=== PATIENT | male | born 1965 | race African-American/Black ===

== ENCOUNTER 2018-12-17 12:33 | Emergency (ER) | payer SELFPAY ==
[~2018-12-17] VITALS: Ht 180.3 cm; Wt 93.2 kg
[2018-12-17] MEDS ORDERED: PredniSONE 20 MG TABLET PO ONE (13:15)
[2018-12-17 13:56] VITALS: BP 162/116
== END 2018-12-17 14:24 | disposition home or self-care (01) ==
LOC: EMS 12:34
DX: H02.89 Other specified disorders of eyelid (principal)
CPT/HCPCS: 99283; J7512

== ENCOUNTER 2019-01-24 06:56 | Emergency (ER) | payer SELFPAY ==
[~2019-01-24] VITALS: Ht 182.9 cm; Wt 95.5 kg
[2019-01-24 08:32] VITALS: BP 160/118
== END 2019-01-24 08:43 | disposition home or self-care (01) ==
LOC: EMS 06:57
DX: L50.9 Urticaria, unspecified (principal)